=== PATIENT | female | born 1970 | race Caucasian/White ===

== ENCOUNTER 2023-03-19 00:28 | Day surgery (SDC) | payer OTHER, SELFPAY ==
[2023-03-12 09:23] VITALS: BMI 22.4
--- NOTE | 2023-03-12 09:27 | PC.NURSE ---
Report to the Outpatient Waiting Room, entrance under the green pavilion located off [facility], at time 12:30 on date 03/19/23. Planned Procedure Time: 2:30. Time changes happen often and if your time is changed the preop area will call you the afternoon before. - You and your visitor will be asked to self-screen and do not enter if you have any COVID symptoms. - A mask is optional within the hospital at this time. Patients may have clear liquids (water, carbonated beverages, clear teas, apple juice) until 3 hours prior to surgery with a maximum of 20 ounces. - No food from midnight until time of surgery Take the following medications with a SIP of water the morning of surgery: ATENOLOL DO NOT STOP ANY OF YOUR OTHER PRESCRIPTION MEDICATIONS PRIOR TO SURGERY EXCEPT THE FOLLOWING Medications to discontinue per physician: N/A Date to take last dose: N/A Please no make-up, nail beninese, hairspray, perfume, deodorant, or body powder the day of surgery. No jewelry (including any body piercings) or valuables the day of surgery, leave them at home. Please take a shower or bath the night before, or the morning of, surgery with an antibacterial soap. Wear comfortable, loose fitting clothing. - Jewelry must be removed prior to entering the operating room. Rings and piercings that are not removed may be cut off. - The hospital will not accept responsibility for valuables. - Please leave all valuables, including medications, at home the day of surgery. If you are going home after surgery, a licensed route sales delivery driver must drive you home. - NO public transportation without another adult if you receive anesthesia. - We recommend that an adult stay with you for 24 hours following discharge. - We also recommend that you do not drive, make important decision, drink alcoholic beverages, or take any drugs that were not prescribed by your health care provider for at least 24 hours after your discharge time. Follow any additional instructions given to you from your surgeon. If you or anyone in your household have experienced Covid symptoms in the past week, please notify your surgeon or the nurse liaison at the phone number below for possible testing. Telephone instructions given to PT - FRANKLIN CAMERON and asked if any additional questions and then verbalized understanding. Patient advised to call surgeon office or pre surgery nurse liaison [phone] if any additional questions.
--- NOTE | 2023-03-19 11:39 | ECG_ITS ---
Measurements Intervals [place] Rate: 57 P: -28 [place]: 153 QRS: 35 QRSD: 94 T: 29 QT: 385 QTc: 377 Interpretive Statements SINUS BRADYCARDIA NONSPECIFIC ST AND T-WAVE ABNORMALITY NO PREVIOUS ECG AVAILABLE FOR COMPARISON Electronically Signed On 03-19-2023 18:02:22 CDT by Devaughn Sanders M.D.
[2023-03-19 13:00] VITALS: BP 160/86; PULSE 62; RESP 16; TEMP 37.2; O2SAT 100
[2023-03-19] MEDS: LACTATED RINGERS 1,000 ML 30 ML IV CONT (13:00)
--- NOTE | 2023-03-19 14:36 | WPDHPUPDATE1 ---
History and Physical Update Update Date/Time: 03/19/23 14:36 History and Physical has been reviewed, including an updated exam of the patient. There are NO changes in the patient's condition. Risks, benefits, and alternatives have been discussed and questions answered. Patient agrees to proceed with procedure.
--- NOTE | 2023-03-19 14:38 | W.PM.PROC2 ---
Procedure Note - Detailed Date of Procedure 03/19/23 Pre-op Diagnosis brow ptosis Post-op Diagnosis Same Procedure Performed Bilateral direct brow lift Surgeon Gutierrez Hart MD Anesthesia General Description of Procedure Preoperatively the risks, benefits, alternatives were discussed in extensive detail. I want her to be very realistic about the risks involved as well as expectations. Again today I was very upfront and honest the scar location and appearance (possibly poor appearance). The limitations of this procedure and all her options for brow lift were discussed. Answered all of her questions to her and her families satisfaction. Voiced a clear understanding. Consent obtained. She was marked in the preoperative holding area. We simulated the brow lift and she understands this is only a simulation. She was very precise about where she would like placement and I told her we would get as close as possible; however, we could and can never guarantee placement. She likes brow fairly high and explained the limitations of this. This was a lengthy open-ended conversation making sure she was very clear about the asymmetry she currently has and her desired brow position and she will always have a degree of asymmetry. She was taken to the operating room placed supine on the operating room table. Anesthesia provided by anesthesiology and prepped and draped in a standard sterile fashion. Surgical time-out was taken. I verified the markings and measured bilateral to ensure symmetry. 1% lidocaine and 0.25% Marcaine with epinephrine was used anesthetize locally. Fifteen blade used to make the to excise the brow skin skin above the brow. This was closed with 4-0 Monocryl and 5 0 nylon. She tolerated the procedure well. Estimated Blood Loss 10 Drains No Packing No Pathology None sent Complications No immediate complications Condition Stable Disposition PACU
--- NOTE | 2023-03-19 14:45 | P.PNAN_ITS ---
Anes - Initial Pre Proc Eval Procedure: Operation Date: 03/19/23 14:30 Proposed Procedures p Bilateral Direct Brow Lift - Gutierrez Hart MD Date/Time: 03/19/23 14:45 Surgeon: Gutierrez Hart MD Pre Op Diagnosis: brow ptosis Patient Data Age: 52 Gender: F Height: 1.65 m Weight: 59.1 kg Last Vital Signs Temp 37.2 C 03/19/23 13:00 Pulse 62 03/19/23 13:00 Resp 16 03/19/23 13:00 BP 160/86 H 03/19/23 13:00 Pulse Ox 100 03/19/23 13:00 O2 Del Method Room Air 03/19/23 13:00 Allergies Allergy/AdvReac Type Severity Reaction Status Date / Time amoxicillin [From Augmentin] Allergy Hives Verified 03/19/23 13:13 ampicillin Allergy Hives Verified 03/19/23 13:13 clavulanic acid Allergy Hives Verified 03/19/23 13:13 [From Augmentin] Home Medications Medication Instructions Recorded Confirmed Type atenolol 50 mg tablet 50 mg PO DAILY 03/12/23 03/19/23 History estradiol 1 mg tablet 1 mg PO DAILY 03/12/23 03/19/23 History Patient hx anesthesia problems: none Family hx anesthesia problems: none Results Review: All pre-operative results and documents have been reviewed as part of the pre-op erative evaluation. [facility] Past Medical History Medical History (Updated 03/19/23 @ 14:48 by Lencho Burnett MD) HTN (hypertension) Surgical History Surgical History H/O breast augmentation Social History Social History Smoking status: Never smoker Alcohol intake: never Substance use: never Substance use type: does not use Living arrangements: with family Spiritual care concerns: No Anes - Eval Final PreProcedure Day of Procedure 03/19/23 14:45 Patient weight: normal Heart: regular rate and rhythm Lungs: clear to auscultation Airway: Mallampati scale class II Neurological: alert and oriented Last oral intake: >/= 8 hours ASA classification: II Emergent: no Anesthetic plan: proceed Anesthesia type and monitoring: general LMA and standard monitoring Results Review: All pre-operative results and documents have been reviewed as part of the pre- operative evaluation. Informed Consent: The patient's anesthetic plan and its attendant risks and benefits were discussed with the patient/family/POA. Questions were solicited and answers provided to the satisfaction of the patient/family/POA.
[2023-03-19] MEDS: ceFAZolin 2 GM/D5W 50 ML 2 GM/50 ML BAG IVPB (15:03)
[2023-03-19] MEDS: TRANEXAMIC ACID 1,000MG/ISO100 1,000 MG/100 ML BAG 200 MG IVPB (15:03)
[2023-03-19] MEDS: BUPIVACAINE/EPINEPHRINE 0.25% 50 ML VIAL 7 ML INFILTRATE (15:35)
[2023-03-19] MEDS: LIDO 1%/EPINEPHRINE 1:100,000 20 ML VIAL 7 ML INFILTRATE (15:37)
[2023-03-19 15:56] VITALS: BP 105/67; PULSE 99; RESP 16; O2SAT 98
[2023-03-19 16:25] VITALS: BP 130/80; PULSE 82; RESP 16; O2SAT 100
[2023-03-19 16:55] VITALS: BP 162/92; PULSE 82; RESP 15
[2023-03-19 17:15] VITALS: BP 145/92; PULSE 71; RESP 15
== END 2023-03-19 17:22 | disposition home or self-care (01) ==
PROVIDERS: Visit Provider Surgery Plastic and Reconstructive Surgery
PROC: (CPT 15824; principal; 2023-03-19 14:30)
DX: Z41.1 Encounter for cosmetic surgery (principal); H57.813 Brow ptosis, bilateral; I10 Essential (primary) hypertension
CPT/HCPCS: 15824; 93005; A9270; J0690; J2250; J2405; J2704; J3010; J7120

== ENCOUNTER 2024-04-02 01:02 | Day surgery (SDC) | payer OTHER, SELFPAY ==
[2024-03-24 10:25] VITALS: BMI 21.6
--- NOTE | 2024-03-24 10:33 | PC.NURSE ---
Report to the Outpatient Waiting Room, entrance under the green pavilion located off [facility], at time 0900_ on date 050_. Planned Procedure Time: _1100_. Time changes happen often and if your time is changed the preop area will call you the afternoon before. - You and your visitor will be asked to self-screen and do not enter if you have any COVID symptoms. - A mask is optional within the hospital at this time. Patients may have clear liquids (water, carbonated beverages, clear teas, apple juice) until 3 hours prior to surgery with a maximum of 20 ounces. - No food from midnight until time of surgery - Infants may have breast milk until 4 hours before surgery, formula 6 hours prior to surgery. - Children will be allowed to drink immediately following surgery. If applicable, please bring a bottle or sippy cup to assist with drinking. Juice, water, soda, and popsicles are readily available. For infants on formula, please bring formula the day of surgery. Pacifiers are allowed. Take the following medications with a SIP of water the morning of surgery: ATENOLOL DO NOT STOP ANY OF YOUR OTHER PRESCRIPTION MEDICATIONS PRIOR TO SURGERY ?EXCEPT THE FOLLOWING Medications to discontinue per physician NONE Date to take last dose Please no make-up, nail citizen of [place], hairspray, perfume, deodorant, or body powder the day of surgery. No jewelry (including any body piercings) or valuables the day of surgery, leave them at home. Please take a shower or bath the night before, or the morning of, surgery with an antibacterial soap. Wear comfortable, loose fitting clothing. Children are encouraged to wear pajamas. - Jewelry must be removed prior to entering the operating room. Rings and piercings that are not removed may be cut off. - The hospital will not accept responsibility for valuables. - Please leave all valuables, including medications, at home the day of surgery. If you are going home after surgery, a licensed coach tour driver must drive you home. - NO public transportation without another adult if you receive anesthesia. - We recommend that an adult stay with you for 24 hours following discharge. - We also recommend that you do not drive, make important decision, drink alcoholic beverages, or take any drugs that were not prescribed by your health care provider for at least 24 hours after your discharge time. For Pediatric surgeries, we recommend two adults accompany the child home. Follow any additional instructions given to you from your surgeon. If you or anyone in your household have experienced Covid symptoms in the past week, please notify your surgeon or the nurse liaison at the phone number below for possible testing. Telephone instructions given to _PATIENT_and asked if any additional questions and then verbalized understanding. Patient advised to call surgeon office or pre surgery nurse liaison [phone] if any additional questions.
[2024-04-02] VITALS (9 sets, daily range): BP systolic 77–161; BP diastolic 42–83; PULSE 63–89; RESP 14–19; TEMP 36.3–36.5; O2SAT 99–100; BMI 22.1
--- NOTE | 2024-04-02 09:23 | ECG_ITS ---
SEE SCANNED COPY FOR CONFIRMED REPORT. MTDD
[2024-04-02] MEDS: LACTATED RINGERS 1,000 ML 30 ML IV CONT ×2 (09:40→11:23)
--- NOTE | 2024-04-02 09:41 | P.PNAN_ITS ---
Anes - Initial Pre Proc Eval Procedure: Operation Date: 04/02/24 11:00 Proposed Procedures p Bilateral Upper Eyelid Blepharoplasty - Gutierrez Hart MD Date/Time: 04/02/24 09:41 Surgeon: Gutierrez Hart MD Pre Op Diagnosis: Dermatochalasis Patient Data Age: 53 Gender: F Height: 1.65 m Weight: 59 kg Allergies Allergy/AdvReac Type Severity Reaction Status Date / Time amoxicillin [From Augmentin] Allergy Hives Verified 03/19/23 13:13 ampicillin Allergy Hives Verified 03/19/23 13:13 clavulanic acid Allergy Hives Verified 03/19/23 13:13 [From Augmentin] Home Medications Medication Instructions Recorded Confirmed Type atenolol 50 mg tablet 50 mg PO DAILY 03/12/23 03/24/24 History estradiol 1 mg tablet 1 mg PO DAILY 03/12/23 03/24/24 History Patient hx anesthesia problems: none Family hx anesthesia problems: none Results Review: All pre-operative results and documents have been reviewed as part of the pre- operative evaluation. [facility] Past Medical History Medical History (Updated 03/19/23 @ 14:48 by Lencho Burnett MD) HTN (hypertension) Surgical History Surgical History H/O breast augmentation Social History Social History Smoking status: Never smoker Alcohol intake: current Alcohol use details: 1 EVERY OTHER MONTH Substance use: never Substance use type: does not use Living arrangements: with family Spiritual care concerns: No Anes - Eval Final PreProcedure Day of Procedure 04/02/24 09:41 Patient weight: normal Heart: regular rate and rhythm Lungs: clear to auscultation Airway: Mallampati scale class II Neurological: alert and oriented Last oral intake: >/= 8 hours ASA classification: II Emergent: no Anesthetic plan: proceed Anesthesia type and monitoring: general LMA and standard monitoring Results Review: All pre-operative results and documents have been reviewed as part of the pre-operative evaluation. Informed Consent: The patient's anesthetic plan and its attendant risks and benefits were discussed with the patient/family/POA. Questions were solicited and answers provided to the satisfaction of the patient/family/POA.
--- NOTE | 2024-04-02 09:42 | WPDHPUPDATE1 ---
History and Physical Update Update Date/Time: 04/02/24 09:42 History and Physical has been reviewed, including an updated exam of the patient. There are NO changes in the patient's condition. Risks, benefits, and alternatives have been discussed and questions answered. Patient agrees to proceed with procedure.
--- NOTE | 2024-04-02 09:43 | W.PM.PROC2 ---
Procedure Note - Detailed Date of Procedure 04/02/24 Pre-op Diagnosis Dermatochalasis Post-op Diagnosis Same Procedure Performed Bilateral upper eyelid blepharoplasty Surgeon Gutierrez Hart MD Anesthesia General Description of Procedure Preoperatively risks, benefits, alternatives were discussed in extensive detail. I want them to be very realistic about the risks involved as well as expectations. Discussed what we can and cannot improved. Limitations of this procedure. Alternative procedure as well as adjuvant procedures. This was a lengthy open-ended conversation discussing realistic expectations of outcome. Answered all of their questions to their satisfaction. Consent obtained. Marked in the preoperative holding along the tarsal crease. A pinch test was completed to yudith the upper border and pinch test was utilized to verify no lagophthalmos after simulation of skin removal. Taken to the operating room placed supine on the operating room table. Anesthesia provided by anesthesiology. Prepped and draped in a standard sterile fashion. 1% lidocaine and 0.25% Marcaine with epinephrine was used anesthetize locally. A 15 blade was used to excise the skin flap. I thin incised the muscle and entered the nasal and middle compartments removing only what was clearly excess adiposity. I verified strict hemostasis throughout. This was closed with 5-0 fast absorbing plain gut suture. Patient was woken taken the PACU without difficulty. All instrument sponge counts were correct at the end the case. Estimated Blood Loss 5 Drains No Packing No Pathology None sent Complications No immediate complications Condition Stable Disposition PACU
[2024-04-02] MEDS: ceFAZolin 2 GM/D5W 50 ML 2 GM/50 ML BAG IVPB (10:16)
[2024-04-02] MEDS: BALANCED SALT SOLN OPHTH IRRIG 30 ML BTL EACH EYE (10:52)
[2024-04-02] MEDS: LIDO 1%/EPINEPHRINE 1:100,000 50 ML VIAL 30 ML INFILTRATE (10:53)
[2024-04-02] MEDS: BUPivacaine HCL 0.25% PF 30 ML VIAL INFILTRATE (10:53)
== END 2024-04-02 13:45 | disposition home or self-care (01) ==
PROVIDERS: Visit Provider Surgery Plastic and Reconstructive Surgery
PROC: (CPT 15822; principal; 2024-04-02 11:00)
DX: Z41.1 Encounter for cosmetic surgery (principal); H02.834 Dermatochalasis of left upper eyelid; H02.831 Dermatochalasis of right upper eyelid; I10 Essential (primary) hypertension; Z98.890 Other specified postprocedural states
CPT/HCPCS: 15822; 93005; A9270; J0690; J1100; J1200; J2250; J2405; J2704; J3010; J7120